=== PATIENT | female | born 1945 | race Caucasian/White ===

== ENCOUNTER 2018-02-01 09:27 | Inpatient (IN) | payer OTHER, MEDICARE ==
--- NOTE | 2018-01-31 14:02 | GHP ---
DATE OF ADMISSION: 02/01/2018 HISTORY: The patient is a 72-year-old female who presents with right shoulder pain, limitation of mo tion, function. This has been a gradual onset over years. She has tried physical therapy without im provement. She has had a glenohumeral joint steroid injection that gave a very short period of impro vement. She has also had a PRP injection without improvement. She has limitation of motion. She mosqueda s pain and this inhibits activities of daily living. Her shoulder x-ray and MRI shows significant shirley ne-on-bone glenohumeral osteoarthritis with degenerative lipping, decreased joint space. She also omsqueda s some partial-thickness rotator cuff thinning and no full-thickness tear. She has elected to underg o a right total shoulder arthroplasty. PAST MEDICAL HISTORY: Remarkable for hypothyroid. MEDICATIONS: She is using levothyroxine 25 mcg p.o. daily. She uses cyclobenzaprine on a p.r.n. bas is, as well as supplements. ALLERGIES: She has an allergy or sensitivity to codeine causing nausea. PAST SURGICAL HISTORY: She has had a tonsillectomy, bilateral total hip arthroplasty, repair of a fi nger fracture. SOCIAL HISTORY: She is a nonsmoker. REVIEW OF SYSTEMS: Positive from the endocrine standpoint for hypothyroid. PHYSICAL EXAM: GENERAL: The patient is a well developed, well nourished female in no apparent distr ess. HEAD AND NECK: Normocephalic, atraumatic. CHEST: Clear. CARDIOVASCULAR: Regular rate and r hythm. ABDOMEN: Soft. NEUROLOGIC: She is alert and oriented x3. EXTREMITIES: Examination of the right shoulder shows 100 degrees of forward flexion, only 60 degrees of abduction, 25 degrees of ext ernal rotation. She can just reach behind her back to her low back. She can initiate abduction, ext ernally rotate against resistance. Neurovascular exam is intact. IMAGING: X-rays are described above. IMPRESSION: Right shoulder glenohumeral arthritis. PLAN: Right total shoulder arthroplasty. Benefits and risks of surgery have been reviewed. She und erstands the risks, include infection, damage to blood vessel or nerve, failure or loosening of compo nents and need for revision. She has signed a consent form and wishes to proceed. /[id number]/MODL
[~2018-02-01 09:27] MED LIST: ROPIVACAINE 0.2% 80 MG, EPINEPHrine 0.2 MG, KETOROLAC TROMETHAMINE 30 MG in SYRINGE 0 ML IU ONE; TRANEXAMIC ACID 1,000 MG in NS 100 ML IV ONE
[2018-02-01] MEDS ORDERED: PREGABALIN 150 MG CAP PO ONE (09:52)
[2018-02-01] MEDS ORDERED: LR 1,000 ML IV SCH (09:52)
[2018-02-01] MEDS ORDERED: ACETAMINOPHEN 500 MG TAB PO ONE (09:52)
[2018-02-01] MEDS ORDERED: ceFAZolin 2 GM/DEXTROSE 100 ML IV ONE (09:52)
[2018-02-01] MEDS ORDERED: LR 1,000 ML IV ONE (09:54)
[2018-02-01] MEDS ORDERED: LIDOCAINE 1% 2 ML INJ ID PRN (09:54)
[2018-02-01] MEDS ORDERED: ACETAMINOPHEN 500 MG TAB ONE (10:38)
[2018-02-01] MEDS ORDERED: BUPIVACAINE/EPI 0.5% 30 ML SDV ONE (11:50)
[2018-02-01] MEDS ORDERED: BACITRACIN 50,000 UNITS/10 ML SYR IRR ONE (11:51)
[2018-02-01] MEDS ORDERED: POLYMYXIN B SULFATE 500,000 UNIT/10 ML SYR IRR ONE (11:51)
--- NOTE | 2018-02-01 12:23 | PDANEPAE ---
ANE History of Present Illness OA here for R TSA ANE Past Medical History - Cardiovascular History Hx Hypertension: No Hx Arrhythmias: No Hx Chest Pain: No Hx Coronary Artery / Peripheral Vascular Disease: No Hx CHF / Valvular Disease: No Hx Palpitations: No - Pulmonary History Hx COPD: No Hx Asthma/Reactive Airway Disease: No Hx Recent Upper Respiratory Infection: No Hx Oxygen in Use at Home: No Hx Sleep Apnea: No Sleep Apnea Screening Result - Last Documented: Negative - Neurologic History Hx Cerebrovascular Accident: No Hx Seizures: No Hx Dementia: No Neurologic History Comment: CERVICAL STENOSIS WITH LIMITED ROM - Endocrine History Hx Diabetes: No Endocrine History Comment: HYPOTHYROID - Renal History Hx Renal Disorders: No - Liver History Hx Hepatic Disorders: No - Neurological & Psychiatric Hx Hx Neurological and Psychiatric Disorders: No - Cancer History Hx Cancer: No - Congenital Disorder History Hx Congenital Disorders: No - GI History Hx Gastrointestinal Disorders: No - Other Health History Other Health History: CERVICAL STENOSIS WITH LIMITED ROM. OSTEOARTHRITIS. LIMITED ROM RT SHLDR - Chronic Pain History Chronic Pain: Yes (RT SHLDR) - Surgical History Prior Surgeries: ALYCIA TOTAL HIP. TONSILLECTOMY. LT 5TH FINGER ORIF WITH POST HARDWARE REMVL ANE Review of Systems Review of Systems: - Exercise capacity METS (RN): 6 METS ANE Patient History - Allergies Allergies/Adverse Reactions: codeine Allergy (Verified 01/20/18 14:58) shellfish derived Allergy (Verified 01/20/18 14:58) NAUSEA - Home Medications Home Medications: Amoxicillin Trihydrate [Amoxicillin] 2,000 mg PO ONCE PRN 01/20/18 [Last Taken 1 Month Ago ~01/02/18] Ascorbic Acid [Vitamin C 500 mg (*)] 1,000 mg PO DAILY@1000 01/20/18 [Last Taken 1 Week Ago ~01/25/18] Cyclobenzaprine [Flexeril 10 MG (*)] 10 mg PO DAILY PRN 01/20/18 [Last Taken 3 Weeks Ago ~01/11/18] Herbals/Supplements -Info Only 1 ea PO DAILY 01/20/18 [Last Taken 1 Week Ago ~] Ibuprofen [Motrin (*)] 400 mg PO DAILY PRN 01/20/18 [Last Taken 2 Weeks Ago ~05/07] Levothyroxine [Synthroid 25 mcg (*)] 25 mcg PO DAILY06 01/20/18 [Last Taken ] Multivitamins [Multivitamin (*)] 1 each PO DAILY@1000 01/20/18 [Last Taken 1 Week Ago ~01/25/18] [place]-3 Fatty Acids [Fish Oil 1000 mg (*)] 2,000 mg PO DAILY@1000 01/20/18 [ Last Taken 1 Week Ago ~01/25/18] Tears/Dextran 70/Hypromellose [Natural Balance Tears (*)] 1 drop EACHEYE Q2 PRN 01/20/18 [Last Taken 1 Month Ago ~01/02/18] valACYclovir [Valtrex (*)] 2,000 mg PO ONCE PRN 01/20/18 [Last Taken 01/29/18] Tylenol 02/01/18 [Last Taken 2 Days Ago ~01/30/18] - NPO status NPO Status: no food or drink >8 hours NPO Since - Liquids (Date): 01/31/18 NPO Since - Liquids (Time): 22:00 NPO Since - Solids (Date): 01/31/18 NPO Since - Solids (Time): 19:00 - Anes Hx Anes Hx: no prior problems - Smoking Hx Smoking Status: Never smoked - Family Anes Hx Family Anes Hx: none ANE Labs/Vital Signs - Vital Signs Blood Pressure: 163/102 Heart Rate: 77 Respiratory Rate: 15 O2 Sat (%): 96 Height: 160.02 cm Weight: 58.513 kg ANE Physical Exam - Airway Neck exam: FROM Mallampati Score: Class 2 Mouth exam: normal dental/mouth exam - Pulmonary Pulmonary: no respiratory distress, clear to auscultation - Cardiovascular Cardiovascular: regular rate and rhythym, no murmur, rub, or gallop - ASA Status ASA Status: II ANE Anesthesia Plan Anesthesia Plan: general endotracheal anesthesia, GA w LMA Regional Anesthesia: single shot NB, interscalene BP NB
[2018-02-01] MEDS ORDERED: MIDAZOLAM 2 MG/2 ML VIAL IVP ONE (12:24)
--- NOTE | 2018-02-01 12:34 | PDHPUP ---
History & Physical Update H&P update statement: This history and physical update is based on an assessment of the patient which was completed after admission or registration (within 24 hours), but prior to the surgery/procedure. H&P update: no change in patient's condition since H&P completed (no change)
[2018-02-01] MEDS ORDERED: PROPOFOL 200 MG/20 ML VIAL ONE (12:45)
[2018-02-01] MEDS ORDERED: fentaNYL 100 MCG/2 ML INJ ONE (12:45)
[2018-02-01] MEDS ORDERED: LIDOCAINE 2% 100 MG/5 ML SYR ONE (12:47)
[2018-02-01] MEDS ORDERED: PROPOFOL/EMULSION 500 MG/50 ML BOTTLE IV ONE ×2 (13:25→15:01)
[2018-02-01] MEDS ORDERED: DEXAMETHASONE 4 MG/ML VIAL ONE (13:25)
[2018-02-01] MEDS ORDERED: ONDANSETRON 4 MG/2 ML VIAL ONE (13:25)
[2018-02-01] MEDS ORDERED: PHENYLEPHRINE HCL 100 MCG/ML SYR ONE ×2 (14:19)
[2018-02-01] MEDS ORDERED: ONDANSETRON 4 MG/2 ML VIAL IVP PRN (15:36)
[2018-02-01] MEDS ORDERED: TEMAZEPAM 15 MG CAP PO PRN (15:36)
[2018-02-01] MEDS ORDERED: ACETAMINOPHEN 325 MG TAB PO PRN (15:36)
[2018-02-01] MEDS ORDERED: KETOROLAC 15 MG/1 ML SDV IVP ONE (15:36)
[2018-02-01] MEDS ORDERED: D5W 1/2 NS W/ 20 KCl/L 1,000 ML IV SCH (15:45)
[2018-02-01] MEDS ORDERED: TEARS/DEXTRAN 70/HYPROMELLOSE 15 ML OPHT.BTL EACHEYE PRN (15:48)
[2018-02-01] MEDS ORDERED: CYCLOBENZAPRINE 10 MG TAB PO PRN (15:48)
--- NOTE | 2018-02-01 16:26 | GOP ---
DATE OF OPERATION: 02/01/2018 SURGEON: Dillon Edmonds MD BRICKLAYER TENDER: JENNA LuoA, LSA ANESTHESIA: General anesthetic with laryngeal mask ventilation. ANESTHESIOLOGIST: Dr. Lancaster PREOPERATIVE DIAGNOSIS: Right shoulder osteoarthritis. POSTOPERATIVE DIAGNOSIS: Right shoulder osteoarthritis. PROCEDURE PERFORMED: Right total shoulder arthroplasty. FINDINGS: SPECIMENS: Include excised bone. ESTIMATED BLOOD LOSS: About 30 cc. INDICATIONS: The patient is a 72-year-old female who presents with history, exam, x-rays, and MRI, a ll consistent with advanced severe right shoulder osteoarthritis. She has some partial-thickness cuf f involvement, but no full-thickness cuff tear, so she should have a functional cuff for a standard t otal joint replacement. X-rays show inferior osteophyte, suub-ye-[id number] contact, decreased joint space , subchondral sclerosis. She has tried conservative measures and is having difficulties with activit ies of daily living and quality of life with her painful and limited shoulder. Total shoulder arthro plasty is planned. DESCRIPTION OF PROCEDURE: The patient was taken to the operating room and a scalene block was placed by Dr. Lancaster under ultrasound guidance. She received preoperative antibiotics, as well as tranexami c acid. She was placed under general anesthetic with laryngeal mask ventilation. On a standard tabl e, used a Andrade head sampler and placed in a beach chair position, moving her body over to the righ t side, flex and extend her shoulder. Her head was secured. All bony prominences were well padded, and the right shoulder and arm were prepped and draped free in the usual fashion. I used an anterior deltopectoral approach, dissected through subcutaneous tissue. Found the plane be tween the anterior edge of the deltoid and the pectoralis muscle. I moved the cephalic vein lateral with the deltoid and this gave me excellent exposure of the proximal humerus. I identified where the long head biceps was just above the pectoralis tendon, opened the tendon sheath, and I sutured the t endon into the tendon sheath with 2 [id number] #2 FiberWires and then released the tendon above it and then later removed the stump of the tendon in the joint, basically tenodesing of the long head biceps. I opened the anterior aspect of the shoulder joint through the interval, then vertically through the subscapularis attachment, and I reflected the subscapularis and capsule as 1 layer, tagging it with s utures and I dissected scarred thickened capsule from its undersurface and I made sure that the subsc apularis was a motor tendon unit. I palpated the axillary nerve and while holding it inferiorly with my fingertip, I released the infer ior joint capsule so I could bring the head up out of the wound. I used a neck cutting guide to make a humeral neck cut in about 25 degrees of retroversion. I then gained entrance to the canal with th e shoulder extended with an awl. I reamed by hand with a T-handle up to a 10 and broached up to a si ze 10. This was a good fit and I left the last broach to protect the head and neck area. I placed a posterior retractor and anterior glenoid rim retractors to expose the glenoid. I sized th e glenoid at a 40 and drilled the central pin and then a drill PEG and then used a reamer to smooth t he surface of the glenoid. I then drilled 2 inferior and 1 superior hole for PEG holes. The trial 4 0 glenoid was a good fit. We dried these surfaces. I placed a small bit of methylmethacrylate cemen t in the PEG holes only, leaving the bony ingrowth central PEG empty for bone ingrowth and the size 4 0 crosslink poly glenoid was an excellent fit and stable on the surface of the scapula. I then removed the broach from the proximal humerus. I drilled about 4 holes transosseous in the les ser tuberosity. I placed 4 sutures of #2 FiberWire. I mattressed these, reaching back about a centi meter into the tendon of the subscapularis and each of these will be tied after placement of the stem . I chose a size 10 [employer] shoulder porous-coated stem size 10. This is an excellent fit in a ppropriate retroversion. I then did trial head reductions. I chose a 44 head that was eccentric mckayla cing the bulk of the head superiorly and this was placed over the Doe taper fit and the shoulder fatou int was reduced. I then tied the multiple sutures in the subscapularis and finished the capsular rep air with a [id number] suture in the rotator cuff in the interval. Antibiotic irrigation was used throughout. This is a stable total shoulder allowing about 50% transl ation and appropriate rotation across her body in about 25 degrees of external rotation. Antibiotic irrigation was used. I infiltrated a joint cocktail through the muscles surrounding the shoulder. T he wound was closed in layers using 2-0 Monocryl, then a 3-0 Monocryl Quill suture subcuticularly. T his was further addressed with glue, Telfa, and a Tegaderm. The patient was placed in a sling. Ther e were no complications. DRAINS: No drain. COUNT: All counts were correct and the patient was taken in stable condition to recovery. My registered nurse surgical services was a medical necessity for this total shoulder replacement. SUMMARY OF COMPONENTS: This is a [employer] shoulder, a standard stem size 10 was used, porous coa elie and press-fit. The head is a 44 x 18 mm thick eccentric head, the glenoid component is cross-bryant ked polyethylene, it is a size 40 with a central bony ingrowth PEG. /[id number]/MODL
--- NOTE | 2018-02-01 16:27 | PDMN ---
Medical Necessity Medical necessity: CPT 44320, IP Only, [facility] [place] S034 Shoulder Arthroplasty, 72 yo s/p R shoulder arthroplasty
[2018-02-01] MEDS: ceFAZolin 2 GM/DEXTROSE 100 ML IV SCH (18:04)
[2018-02-01] MEDS: KETOROLAC 15 MG/1 ML SDV IVP SCH (19:19)
[2018-02-02] MEDS: KETOROLAC 15 MG/1 ML SDV IVP SCH ×2 (00:37→06:01)
[2018-02-02] MEDS: ceFAZolin 2 GM/DEXTROSE 100 ML IV SCH (02:35)
[2018-02-02] MEDS ORDERED: LEVOTHYROXINE 25 MCG TAB PO SCH (06:00)
--- NOTE | 2018-02-02 07:59 | SOAPPROG ---
SOAP Progress Note Assessment/Plan: Assessment: 02/02/18 POD#1 R TSA, pain controlled, xray fine Plan: 02/02/18 07:56 D/C home, has rx for celebrex, has tramadol Objective: Vital Signs Temp Pulse Resp BP Pulse Ox 36.4 C 59 L 16 106/66 94 02/02/18 04:00 02/02/18 04:00 02/02/18 04:00 02/02/18 04:00 02/02/18 04:00 02/01/18 02/02/18 02/03/18 05:59 05:59 05:59 Intake Total 2600 1471 Output Total 205 Balance 3835 1471 ICD10 Worksheet Patient Problems: Problems Problem Status Onset Osteoarthritis of right shoulder Acute - ICD10 Problem Qualifiers (1) Osteoarthritis of right shoulder
[2018-02-02 08:13] VITALS: BP 117/67
[2018-02-02] MEDS ORDERED: MULTIVITAMINS 1 EACH TAB PO SCH (10:00)
[2018-02-02] MEDS ORDERED: ASCORBIC ACID 500 MG TAB PO SCH (10:00)
[2018-02-02] MEDS ORDERED: OMEGA-3 FATTY ACIDS 1,000 MG CAP PO SCH (10:00)
--- NOTE | 2018-02-05 09:36 | POSTANESTH ---
Post Anesthetic Evaluation Cardiovascular Status: Normal, Stable, Similar to Pre-Op Cond Respiratory Status: Normal, Stable, Similar to Pre-op Cond. Level of Consciousness/Mental Status: Can Participate in Eval, Alert and Oriented Pain Control: Adequate, Prn Tx Ordered Nausea/Vomiting Control: Adequate, Prn Tx Ordered Complications Possibly Related to Anesthesia: None Noted
== END 2018-02-02 11:11 | disposition home or self-care (01) | DRG 483 ==
LOC: F3E 09:27 → F3N 16:30
PROVIDERS: ADMIT Family Medicine; ATTEND Orthopaedic Surgery
PROC: 0RRJ0JZ Replacement of Right Shoulder Joint with Synthetic Substitute, Open Approach (ICD-10-PCS; principal; 2018-02-01 12:00)
DX: M19.011 Primary osteoarthritis, right shoulder (principal); E03.9 Hypothyroidism, unspecified; Z23 Encounter for immunization
CPT/HCPCS: 97161-GP; 97165-GO; 97535-GO; C1713; G0008; G8978-GP-CH; G8979-GP-CH; G8980-GP-CH; G8987-GO-CI; G8988-GO-CI; G8989-GO-CI; J0171; J0690; J1100; J1885; J2001; J2250; J2370; J2405; J2704; J2795; J3010